=== PATIENT | female | born 1985 | race Two or more races ===

== ENCOUNTER 2023-09-09 05:04 | Day surgery (SDC) | payer OTHER ==
[2023-09-09] MEDS ORDERED: LIDOCAINE 1% INJ 50 ML MDV IJ ONE (06:00)
[2023-09-09] MEDS ORDERED: BUPIVACAINE 0.25% 75 MG/30 ML VIAL ONE (06:00)
[2023-09-09] MEDS ORDERED: MIDAZOLAM HCL 2 MG/2ML VIAL ONE (06:14)
[2023-09-09] MEDS ORDERED: FENTANYL PF 100MCG/2ML AMPUL ONE (06:14)
[2023-09-09 06:39] LABS: PREGNANCY TEST URINE QUAL NEGATIVE (NEGATIVE)
[2023-09-09] MEDS ORDERED: POLYMYXIN B SULFATE 0 UNITS ONE (06:50)
== END 2023-09-09 09:45 | disposition home or self-care (01) ==
LOC: DS 05:04 → MED 05:05 → UNDOADMIN 05:05 → DS 09:45
PROVIDERS: ATTEND Specialist
DX: D48.9 Neoplasm of uncertain behavior, unspecified (principal)
CPT/HCPCS: 25115; 26116; 84703; 88305; 88341; 88342; A6253; J0690; J1100; J2250; J2405; J2704; J3010; J3490; J7030